=== PATIENT | female | born 1960 | race African-American/Black ===

== ENCOUNTER 2020-12-05 10:50 | Outpatient (REF) | payer OTHER, SELFPAY ==
[2020-12-05 14:04] LABS: Hematocrit 42.5 % (37-47); Hemoglobin 13.5 g/dl (12.0-16.0); Mean Corpuscular HGB Conc 31.8 g/dl (31.0-35.0); Mean Corpuscular Hemoglobin 29.1 pg (27.0-33.0); Mean Corpuscular Volume 91.6 fL (80-98); Mean Platelet Volume 10.6 fL (9.4-12.3); Platelet Count 356 X10*3/uL (160-400); Red Blood Count 4.64 X10*6/uL (4.20-5.50); Red Cell Distribution Width 12.4 % (11.0-16.0); White Blood Count 4.9 X10*3/uL (4.8-10.8)
[2020-12-05 14:36] LABS: Alanine Aminotransferase 18 U/L (0-31); Albumin Level 4.8 g/dL (3.5-5.0); Alkaline Phosphatase 110 U/L (39-117); Anion Gap 11 (12-20); Aspartate Amino Transferase 15 U/L (5-31); Bilirubin Total 0.6 mg/dL (0.0-1.0); Blood Urea Nitrogen 17 mg/dL (9-16); Calcium 9.6 mg/dL (8.4-10.2); Carbon Dioxide 26 mmol/L (22-29); Chloride 105 mmol/L (96-108); Cholesterol 228 mg/dL; Estimated Glomerular Filt Rate > 60; Glucose Fasting 87 mg/dL (60-99); HDL Cholesterol 54 mg/dL; LDL Cholesterol Calculated 155 mg/dl; Potassium 4.2 mmol/L (3.3-5.1); Sodium 138 mmol/L (135-145); Total Protein 7.6 g/dL (6.5-8.0); Triglycerides 99 mg/dL
== END 2020-12-05 10:51 | disposition home or self-care (01) ==
LOC: HO.HMGCLDS 10:50
PROVIDERS: PCP Internal Medicine; Visit Provider Internal Medicine
DX: Z00.00 Encounter for general adult medical examination without abnormal findings (principal)
CPT/HCPCS: 36415; 80053; 80061; 85027

== ENCOUNTER 2021-12-06 10:51 | Outpatient (REF) | payer OTHER, SELFPAY ==
[2021-12-06 14:06] LABS: Hematocrit 43.1 % (37.0-47.0); Mean Corpuscular HGB Conc 32.5 g/dl (31.0-35.0); Mean Corpuscular Hemoglobin 29.7 pg (27.0-33.0); Mean Corpuscular Volume 91.3 fL (80.0-98.0); Mean Platelet Volume 10.7 fL (9.4-12.3); Platelet Count 362 X10*3/uL (160-400); Red Blood Count 4.72 X10*6/uL (4.20-5.50); Red Cell Distribution Width 12.5 % (11.0-16.0); White Blood Count 4.7 X10*3/uL (4.8-10.8)
[2021-12-06 14:20] LABS: Alanine Aminotransferase 21 U/L (0-31); Albumin Level 4.6 g/dL (3.5-5.0); Alkaline Phosphatase 111 U/L (39-117); Anion Gap 10 (12-20); Aspartate Amino Transferase 16 U/L (5-31); Bilirubin Total 0.6 mg/dL (0.0-1.0); Blood Urea Nitrogen 10 mg/dL (9-16); Carbon Dioxide 30 mmol/L (22-29); Chloride 106 mmol/L (96-108); Cholesterol 237 mg/dL; Estimated Glomerular Filt Rate > 60; Glucose Fasting 93 mg/dL (60-99); HDL Cholesterol 53 mg/dL; LDL Cholesterol Calculated 170 mg/dl; Potassium 4.7 mmol/L (3.3-5.1); Sodium 141 mmol/L (135-145); Total Protein 7.6 g/dL (6.5-8.0); Triglycerides 73 mg/dL
[2021-12-06 14:41] LABS: TSH reflex Free T4 1.92 uIU/mL (0.32-4.0)
== END 2021-12-06 10:52 | disposition home or self-care (01) ==
LOC: HO.HMGCLDS 10:51
PROVIDERS: Visit Provider Internal Medicine
DX: Z00.00 Encounter for general adult medical examination without abnormal findings (principal); E78.5 Hyperlipidemia, unspecified
CPT/HCPCS: 36415; 80053; 80061; 84443; 85027; 87086

== ENCOUNTER 2022-07-03 08:47 | Outpatient (REF) | payer OTHER, SELFPAY ==
[2022-07-03 11:56] LABS: Cholesterol 231 mg/dL; HDL Cholesterol 54 mg/dL; LDL Cholesterol Calculated 165 mg/dl; Triglycerides 63 mg/dL
== END 2022-07-03 08:48 | disposition home or self-care (01) ==
LOC: HO.HMGCLDS 08:47
PROVIDERS: PCP Internal Medicine; Visit Provider Internal Medicine
DX: E78.5 Hyperlipidemia, unspecified (principal)
CPT/HCPCS: 36415; 80061

== ENCOUNTER → 2022-10-24 08:51 | Outpatient (BNVA) | payer OTHER, SELFPAY | PROVIDERS: PCP Internal Medicine; Visit Provider Dietitian, Registered | DX: E78.5 Hyperlipidemia, unspecified (principal); Z71.3 Dietary counseling and surveillance | CPT/HCPCS: 97802 ==

== ENCOUNTER 2023-04-22 11:02 | Outpatient (AMB) | payer OTHER, SELFPAY ==
[2023-04-22 11:17] VITALS: BP 108/66; PULSE 79; O2SAT 96; BMI 27.6
--- NOTE | 2023-04-22 11:17 | A.OFFPC_ITS ---
Vital Signs 04/22/23 11:17 Height 5 ft 7 in Weight 176 lb BMI 27.6 BP 108/66 Blood Pressure Location Lt brachial Position Sitting Pulse 79 Pulse Source Pulse Oximeter Pulse Oximetry (%) 96 Oxygen Delivery Method Room Air Intake Visit Reasons: ears clogged Intake Note: Pt is here today for a sick visit. Pt c/o clogged ears since she travel at the end of January. Allergies Seasonal Allergies Allergy (Mild, Verified 04/22/23 11:28) Itchy Eyes tetracycline Allergy (Unknown, Unverified 04/22/23 11:28) nausea and lightheaded Medication List - Last Reconciled 04/22/23 by Consuelo Julio MD No Known Home Meds Tobacco use date assessed: 04/22/23 Dental Screening Dental Screen Date: 04/22/23 Did you have a dental visit in the last 12 months?: Yes Did you have a dental problem in the last 6 months where you did not have access to dental care?: No Was dental information given to patient?: Patient has dentist HPI ears clogged HPI Details Pt c/o right ear feeling blocked on and off for 1 month. She denies earache or discharge fever chills. [facility] Medical History Hyperlipidemia Colonoscopy refused Annual physical exam Liver masses Normal Pap smear Multinodular thyroid Cholelithiasis Surgical History No pertinent past surgical history Family History Father No problems noted. Mother No problems noted. Social History Household Members Other:: works from home, exercise, Housing: House Patient Tobacco Use Status: Never used Tobacco e-Cigarette/Vaping Use: Never Used Current occupational status: employed Cognitive needs: No Hearing needs: No Vision needs: Yes Questionnaire PHQ-9 Over the last 2 weeks, how often have you been bothered by any of the following problems? 1. Little interest or pleasure in doing things: not at all 2. Feeling down, depressed, or hopeless: not at all 3. Trouble falling or staying asleep, or sleeping too much: not at all 4. Feeling tired or having little energy: not at all 5. Poor appetite or overeating: not at all 6. Feeling bad about yourself - or that you are a failure or have let yourself or your family down: not at all 7. Trouble concentrating on things, such as reading the newspaper or watching television: not at all 8. Moving or speaking so slowly that other people could have noticed. Or the opposite - being so fidgety or restless that you have been moving around a lot more than usual: not at all 9. Thoughts that you would be better off or of hurting yourself in some way: not at all Total score: 0 Depression Screening Interpretation: Negative Depression Screening Done: Yes Source: Developed by Drs. Ashish De Dios, Juanis Saleh, Fernando Curiel and colleagues, with an educational karrie from [facility]. Thrive Questionnaire Date Thrive assessed: 04/22/23 I am a: Patient What is your living situation today?: I have a steady place to live Within the past 12 months, did the food you bought not last and you didn't have the money to get more?: Never true Within the past 12 months, did you worry whether your food would run out before you got money to buy more?: Never true Do you have trouble paying for medicines?: No Do you have trouble getting transportation to medical appointments?: No Do you have trouble paying your heating and electricity bill?: No Do you have trouble taking care of your child, family member or friend?: No Do you have trouble with day-to-day activities such as bathing, preparing meals, shopping, managing finances, etc.?: No Are you currently unemployed and looking for a job?: No Are you interested in more education?: No Please select the resources that you would like help with: None Currently or been in a relationship where the following occur: no concerns reported AUDIT C Alcohol Use Questionnaire (AUDIT-C) 1. How often do you have a drink containing alcohol?: Monthly or less 2. How many drinks containing alcohol do you have on a typical day when you are drinking?: 1 or 2 3. How often do you have six or more drinks on one occasion?: Never Total Score: 1 VIANCA-7 AMB Questionnaire VIANCA-7 Date VIANCA - 7 assessed: 04/22/23 Feeling nervous, anxious, or on edge: 0 = Not at all Not being able to stop or control worryin = Not at all Worrying too much about different things: 0 = Not at all Trouble relaxin = Not at all Being so restless that it is hard to sit still: 0 = Not at all Becoming easily annoyed or irritable: 0 = Not at all Feeling afraid as if something awful might happen: 0 = Not at all Total VIANCA-7 score (0-4 normal; 5-9 mild; 10-14 moderate; 15-21 severe): 0 Source: Developed by Drs. Ashish De Dios, Juanis Saleh, Fernando Curiel and colleagues, with an educational karrie from [facility]. Review of Systems Const All systems reviewed & are unremarkable except as noted in HPI and below Reports no additional complaints ENT Reports no additional complaints Card Reports no additional complaints Resp Reports no additional complaints GI Reports no additional complaints Physical exam (Primary Care) Vital Signs: Last Vital Signs Pulse 79 04/22/23 11:17 BP 108/66 04/22/23 11:17 Pulse Ox 96 04/22/23 11:17 Oxygen Delivery Method Room Air 04/22/23 11:17 BMI result Body Mass Index 27.6 Tobacco/Smoking Status: Tobacco use Status Tobacco use date assessed 04/22/23 04/22/23 11:29 Patient Tobacco Use Status Never used Tobacco 04/22/23 11:29 e-Cigarette/Vaping Use Never Used 04/22/23 11:18 PHQ-9: PHQ-9 Score PHQ-9: Total score 0 04/22/23 11:31 Depression Screening Interpretation: Negative Thrive Assessment: Date of Thrive Assessment Date Thrive assessed 04/22/23 04/22/23 11:31 Currently or been in a relationship where the following occur: no concerns reported Const General: no acute distress HENMT Ears: external ear abnormal (Right ear cerumen impaction) General nose exam: Normal nasal mucous membranes and turbinates present Face and sinus: Yes normal facial exam Mouth: Normal oral and palatal mucosa present Throat: Yes posterior oropharynx normal Neck Neck: Yes no lymphadenopathy and Yes supple Resp Auscultation: clear to auscultation bilaterally Cardio Rhythm: regular rhythm Heart sounds: S1 normal heart sound present and S2 normal heart sound present Assessment and Plan Assessment & Plan (1) Impacted cerumen, right ear: Code(s): H61.21 - Impacted cerumen, right ear Plan: Ear lavage was performed. patient tolerated procedure well . she was advised to use Debrox weekly to prevent buildup of cerumen Orders: Orders Complete Blood Count Auto Diff 2 Months E78.5 - Hyperlipidemia, unspecified, R16.0 - Hepatomegaly, not elsewhere classified, Z00.00 - Encounter for general adult medical examination without abnormal findings Lipid Panel 2 Months E78.5 - Hyperlipidemia, unspecified, R16.0 - Hepatomegaly, not elsewhere classified, Z00.00 - Encounter for general adult medical examination without abnormal findings TSH reflex Free T4 2 Months E78.5 - Hyperlipidemia, unspecified, R16.0 - Hepatomegaly, not elsewhere classified, Z00.00 - Encounter for general adult medical examination without abnormal findings Vitamin D 25-OH Total 2 Months E78.5 - Hyperlipidemia, unspecified, R16.0 - Hepatomegaly, not elsewhere classified, Z00.00 - Encounter for general adult medical examination without abnormal findings Comprehensive [place]. Panel Fast 2 Months E78.5 - Hyperlipidemia, unspecified, R16.0 - Hepatomegaly, not elsewhere classified, Z00.00 - Encounter for general adult medical examination without abnormal findings Coding Level of Care Code Est Pt Level 3 (04293) Diagnoses Impacted cerumen, right ear H61.21
== END 2023-04-22 12:09 | disposition home or self-care (01) ==
PROVIDERS: PCP Internal Medicine; Visit Provider Internal Medicine
DX: H61.21 Impacted cerumen, right ear (principal)
CPT/HCPCS: 99213

== ENCOUNTER 2023-07-22 08:31 | Outpatient (AMB) | payer OTHER, SELFPAY ==
[2023-07-22 08:34] VITALS: BP 114/80; PULSE 66; O2SAT 98; BMI 27.9
--- NOTE | 2023-07-22 08:34 | A.OFFPC_ITS ---
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 Allergies Seasonal Allergies Allergy (Mild, Verified 07/22/23 08:37) Itchy Eyes tetracycline Allergy (Unknown, Unverified 07/22/23 08:37) nausea and lightheaded Medication List - Last Reconciled 07/22/23 by Consuelo Julio MD No Known Home Meds Tobacco use date assessed: 07/22/23 Dental Screening Dental Screen Date: 07/22/23 Did you have a dental visit in the last 12 months?: Yes Did you have a dental problem in the last 6 months where you did not have access to dental care?: No Was dental information given to patient?: Patient has dentist HPI phy HPI Details Pt presents for PE. [facility] Medical History (Updated 07/22/23 @ 09:17 by Consuelo Julio MD) Hyperlipidemia Colonoscopy refused Annual physical exam Liver masses Normal Pap smear Multinodular thyroid Cholelithiasis Surgical History No pertinent past surgical history Family History Father No problems noted. Mother No problems noted. Social History Household Members Other:: works from home, exercise, Housing: House Patient Tobacco Use Status: Never used Tobacco e-Cigarette/Vaping Use: Never Used Current occupational status: employed Cognitive needs: No Hearing needs: No Vision needs: Yes Questionnaire PHQ-9 Over the last 2 weeks, how often have you been bothered by any of the following problems? 1. Little interest or pleasure in doing things: not at all 2. Feeling down, depressed, or hopeless: not at all 3. Trouble falling or staying asleep, or sleeping too much: not at all 4. Feeling tired or having little energy: several days 5. Poor appetite or overeating: not at all 6. Feeling bad about yourself - or that you are a failure or have let yourself or your family down: not at all 7. Trouble concentrating on things, such as reading the newspaper or watching television: not at all 8. Moving or speaking so slowly that other people could have noticed. Or the opposite - being so fidgety or restless that you have been moving around a lot more than usual: not at all 9. Thoughts that you would be better off or of hurting yourself in some way: not at all Total score: 1 Depression Screening Interpretation: Negative Depression Screening Done: Yes Source: Developed by Drs. Ashish De Dios, Juanis Saleh, Fernando Curiel and colleagues, with an educational karrie from [employer]. Thrive Questionnaire Date Thrive assessed: 07/22/23 I am a: Patient What is your living situation today?: I have a steady place to live Within the past 12 months, did the food you bought not last and you didn't have the money to get more?: Never true Within the past 12 months, did you worry whether your food would run out before you got money to buy more?: Never true Do you have trouble paying for medicines?: No Do you have trouble getting transportation to medical appointments?: No Do you have trouble paying your heating and electricity bill?: No Do you have trouble taking care of your child, family member or friend?: No Do you have trouble with day-to-day activities such as bathing, preparing meals, shopping, managing finances, etc.?: No Are you currently unemployed and looking for a job?: No Are you interested in more education?: No Please select the resources that you would like help with: None Currently or been in a relationship where the following occur: no concerns reported AUDIT C Alcohol Use Questionnaire (AUDIT-C) 1. How often do you have a drink containing alcohol?: Monthly or less 2. How many drinks containing alcohol do you have on a typical day when you are drinking?: 1 or 2 3. How often do you have six or more drinks on one occasion?: Never Total Score: 1 VIANCA-7 AMB Questionnaire VIANCA-7 Date VIANCA - 7 assessed: 07/22/23 Feeling nervous, anxious, or on edge: 0 = Not at all Not being able to stop or control worryin = Not at all Worrying too much about different things: 0 = Not at all Trouble relaxin = Not at all Being so restless that it is hard to sit still: 0 = Not at all Becoming easily annoyed or irritable: 0 = Not at all Feeling afraid as if something awful might happen: 0 = Not at all Total VIANCA-7 score (0-4 normal; 5-9 mild; 10-14 moderate; 15-21 severe): 0 Source: Developed by Drs. Ashish De Dios, Juanis Saleh, Fernando Curiel and colleagues, with an educational karrie from [employer]. Review of Systems Const All systems reviewed & are unremarkable except as noted in HPI and below Reports no additional complaints Eyes Reports no additional complaints ENT Reports no additional complaints Card Reports no additional complaints Resp Reports no additional complaints GI Reports no additional complaints Reports no additional complaints Musc Reports no additional complaints Physical exam (Primary Care) Vital Signs: Last Vital Signs Pulse 66 07/22/23 08:34 BP 114/86 07/22/23 08:34 Pulse Ox 98 07/22/23 08:34 Oxygen Delivery Method Room Air 07/22/23 08:34 BMI result Body Mass Index 27.9 Tobacco/Smoking Status: Tobacco use Status Tobacco use date assessed 07/22/23 07/22/23 08:40 Patient Tobacco Use Status Never used Tobacco 07/22/23 08:40 e-Cigarette/Vaping Use Never Used 07/22/23 08:40 Depression Screening Interpretation: Negative Thrive Assessment: Date of Thrive Assessment Date Thrive assessed 04/22/23 07/22/23 08:40 Currently or been in a relationship where the following occur: no concerns reported Const General: no acute distress HENMT Head: Yes normal to inspection Ears: hearing grossly normal bilaterally Face and sinus: Yes normal facial exam Mouth: Normal oral and palatal mucosa present Eyes General: appearance normal, both eyes and all related structures Neck Neck: Yes no lymphadenopathy and Yes supple Resp Effort & Inspection: normal respiratory effort Auscultation: clear to auscultation bilaterally Cardio Rhythm: regular rhythm Heart sounds: S1 normal heart sound present and S2 normal heart sound present GI Inspection: Yes normal to inspection Palpation (GI): Soft to palpation Percussion: Yes normal to percussion Auscultation: normal bowel sounds Assessment and Plan Assessment & Plan (1) Hyperlipidemia: Code(s): E78.5 - Hyperlipidemia, unspecified Plan: CONTINUE LOW-CHOLESTEROL DIET REGULAR PHYSICAL ACTIVITY, patient have a fasting labs today if cholesterol still elevated pravastatin 20 mg daily will be started and patient will repeat lipid profile in 2 and 6 months. (2) Annual physical exam: Code(s): Z00.00 - Encounter for general adult medical examination without abnormal findings Plan: Well-balanced diet regular physical activity discussed with the patient. She is up-to-date with the mammogram through [facility], Pap smear by office analyst and patient refused colonoscopy Cologuard will be ordered. (3) Colonoscopy refused: Comment: 11/2020 Cologuard NEGATIVE, 08/12 Cologuard ordered Code(s): Z53.20 - Procedure and treatment not carried out because of patient's decision for unspecified reasons (4) Liver masses: Comment: ? [facility], MRI 09/2018 , recommended repeat with Eovist contrast to be done in 6 months Code(s): R16.0 - Hepatomegaly, not elsewhere classified Plan: check report on repeat MRI. Orders: Orders Lipid Panel Today E78.5 - Hyperlipidemia, unspecified, Z00.00 - Encounter for general adult medical examination without abnormal findings TSH reflex Free T4 Today E78.5 - Hyperlipidemia, unspecified, Z00.00 - Encounter for general adult medical examination without abnormal findings Lipid Panel 2 Months E78.5 - Hyperlipidemia, unspecified Comprehensive [place]. Panel Fast Today E78.5 - Hyperlipidemia, unspecified, Z00.00 - Encounter for general adult medical examination without abnormal findings Complete Blood Count Auto Diff Today E78.5 - Hyperlipidemia, unspecified, Z00.00 - Encounter for general adult medical examination without abnormal findings Referrals Cologuard Test Z12.11 - Encounter for screening for malignant neoplasm of colon, Z12.12 - Encounter for screening for malignant neoplasm of rectum Coding Level of Care Code Est Pt Prev Care 40-64y(58144) Diagnoses Hyperlipidemia E78.5 Annual physical exam Z00.00 Colonoscopy refused Z53.20 Liver masses R16.0
== END 2023-07-22 09:18 | disposition home or self-care (01) ==
PROVIDERS: PCP Internal Medicine; Visit Provider Internal Medicine
DX: E78.5 Hyperlipidemia, unspecified (principal); Z00.00 Encounter for general adult medical examination without abnormal findings; Z53.20 Procedure and treatment not carried out because of patient's decision for unspecified reasons; R16.0 Hepatomegaly, not elsewhere classified
CPT/HCPCS: 99396

== ENCOUNTER 2023-07-22 09:02 | Outpatient (REF) | payer OTHER, SELFPAY | END 2023-07-22 09:03 | disposition home or self-care (01) | LOC: HO.HMGCLDS 09:02 | PROVIDERS: PCP Internal Medicine; Visit Provider Internal Medicine | DX: Z00.00 Encounter for general adult medical examination without abnormal findings (principal); E78.5 Hyperlipidemia, unspecified | CPT/HCPCS: 36415; 80053; 80061; 84439; 84443; 85025 ==

== ENCOUNTER 2023-12-01 09:13 | Outpatient (AMB) | payer OTHER, SELFPAY ==
[2023-12-01 09:18] VITALS: BP 102/64; PULSE 66; O2SAT 96; BMI 27.4
--- NOTE | 2023-12-01 09:18 | A.OFFPC_ITS ---
Vital Signs 12/01/23 09:18 Height 5 ft 7 in Weight 175 lb BMI 27.4 BP 102/64 Blood Pressure Location Rt brachial Position Sitting Pulse 66 Pulse Source Pulse Oximeter Pulse Oximetry (%) 96 Oxygen Delivery Method Room Air Intake Visit Reasons: Dermatology referral Intake Note: Pt is here today for a sick visit. 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 Allergies Seasonal Allergies Allergy (Mild, Verified 12/01/23 09:21) Itchy Eyes tetracycline Allergy (Unknown, Unverified 12/01/23 09:21) nausea and lightheaded Medication List - Last Reconciled 12/01/23 by Consuelo Julio MD Tobacco use date assessed: 12/01/23 Dental Screening Dental Screen Date: 07/22/23 HPI Dermatology referral HPI Details Patient presents for the follow-up. She did not start taking a statin for hyperlipidemia. Patient has been follow low-cholesterol diet started exercising 5 times a week. 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 Mother No problems noted. Social History Household Members Other:: works from home, exercise, Housing: House Patient Tobacco Use Status: Never used Tobacco e-Cigarette/Vaping Use: Never Used service: No Current occupational status: employed Cognitive needs: No Hearing needs: No Vision needs: Yes Questionnaire Thrive Questionnaire Date Thrive assessed: 07/22/23 VIANCA-7 AMB Questionnaire VIANCA-7 Date VIANCA - 7 assessed: 07/22/23 Source: Developed by Drs. Ashish De Dios, Juanis Saleh, Fernando Curiel and colleagues, with an educational karrie from [employer] Review of Systems Const All systems reviewed & are unremarkable except as noted in HPI and below Eyes Reports no additional complaints ENT Reports no additional complaints Card Reports no additional complaints Resp Reports no additional complaints GI Reports no additional complaints Reports no additional complaints Physical exam (Primary Care) Vital Signs: Last Vital Signs Pulse 66 12/01/23 09:18 BP 102/64 12/01/23 09:18 Pulse Ox 96 12/01/23 09:18 Oxygen Delivery Method Room Air 12/01/23 09:18 BMI result Body Mass Index 27.4 Tobacco/Smoking Status: Tobacco use Status Tobacco use date assessed 12/01/23 12/01/23 09:22 Patient Tobacco Use Status Never used Tobacco 12/01/23 09:22 e-Cigarette/Vaping Use Never Used 12/01/23 09:22 Thrive Assessment: Date of Thrive Assessment Date Thrive assessed 07/22/23 12/01/23 09:22 Const General: no acute distress HENMT Face and sinus: Yes normal facial exam Neck Neck: Yes supple Resp Effort & Inspection: normal respiratory effort Auscultation: clear to auscultation bilaterally Cardio Rhythm: regular rhythm Heart sounds: S1 normal heart sound present and S2 normal heart sound present GI Palpation (GI): Soft to palpation Skin Other: Multiple lesions of seborrheic keratosis and dysplastic nevi on the back Assessment and Plan Assessment & Plan (1) Hyperglycemia: Code(s): R73.9 - Hyperglycemia, unspecified Plan: ADA diet increase exercise discussed with the patient she will return for a follow-up in 2 months with a fasting labs including A1c (2) Hyperlipidemia: Code(s): E78.5 - Hyperlipidemia, unspecified Plan: Continue low-cholesterol diet regular exercise (3) Dysplastic nevi: Code(s): D23.9 - Other benign neoplasm of skin, unspecified Plan: Referred to dermatology (4) Liver neoplasm: Comment: on MRI 2018, recommended repeat by radiology Code(s): D49.0 - Neoplasm of unspecified behavior of digestive system Plan: Liver MRI will be reordered and follow-up Orders: Orders Hemoglobin A1c 2 Months E78.5 - Hyperlipidemia, unspecified, R73.9 - Hyperglycemia, unspecified MR abdomen wo/w con Today D49.0 - Neoplasm of unspecified behavior of digestive system Comprehensive Met. Panel 2 Months E78.5 - Hyperlipidemia, unspecified, R73.9 - Hyperglycemia, unspecified Lipid Panel 2 Months E78.5 - Hyperlipidemia, unspecified, R73.9 - Hyperglycemia, unspecified TSH reflex Free T4 2 Months E78.5 - Hyperlipidemia, unspecified, R73.9 - Hyperglycemia, unspecified Referrals Dermatology Referral D23.9 - Other benign neoplasm of skin, unspecified Coding Level of Care Code Est Pt Level 4 (11506) Diagnoses Hyperglycemia R73.9 Hyperlipidemia E78.5 Dysplastic nevi D23.9 Liver neoplasm D49.0
== END 2023-12-01 09:59 | disposition home or self-care (01) ==
PROVIDERS: PCP Internal Medicine; Visit Provider Internal Medicine
DX: R73.9 Hyperglycemia, unspecified (principal); E78.5 Hyperlipidemia, unspecified; D23.9 Other benign neoplasm of skin, unspecified; D49.0 Neoplasm of unspecified behavior of digestive system
CPT/HCPCS: 99214

== ENCOUNTER 2024-02-12 09:07 | Outpatient (REF) | payer OTHER, SELFPAY ==
[2024-02-12 13:22] LABS: Estimated Average Glucose 100 mg/dL; Hemoglobin A1C 111.7679 umol/L; Hemoglobin A1c % 5.1 % (<6.0)
[2024-02-12 13:32] LABS: Alanine Aminotransferase 20 U/L (0-31); Albumin Level 4.5 g/dL (3.5-5.0); Alkaline Phosphatase 105 U/L (39-117); Anion Gap 13 (12-20); Aspartate Amino Transferase 16 U/L (5-31); Bilirubin Total 0.6 mg/dL (0.0-1.0); Blood Urea Nitrogen 11 mg/dL (9-16); Calcium 10.1 mg/dL (8.4-10.2); Carbon Dioxide 27 mmol/L (22-29); Chloride 107 mmol/L (96-108); Cholesterol 234 mg/dL (<200); Estimated Glomerular Filt Rate > 60; Glucose Random 98 mg/dL (60-115); HDL Cholesterol 48 mg/dL (>40); LDL Cholesterol Calculated 155 mg/dL (<100); Potassium 4.3 mmol/L (3.3-5.1); Sodium 143 mmol/L (135-145); Total Protein 7.5 g/dL (6.5-8.0); Triglycerides 156 mg/dL (<150)
[2024-02-12 13:53] LABS: TSH reflex Free T4 1.89 uIU/mL (0.32-4.0)
== END 2024-02-12 09:08 | disposition home or self-care (01) ==
LOC: HO.HMGCLDS 09:07
PROVIDERS: PCP Internal Medicine; Visit Provider Internal Medicine
DX: R73.9 Hyperglycemia, unspecified (principal); E78.5 Hyperlipidemia, unspecified
CPT/HCPCS: 36415; 80053; 80061; 83036; 84443

== ENCOUNTER 2024-02-16 10:16 | Outpatient (AMB) | payer OTHER, SELFPAY ==
[2024-02-16 10:28] VITALS: BP 118/78; PULSE 76; O2SAT 96; BMI 27.4
--- NOTE | 2024-02-16 10:28 | A.OFFPC_ITS ---
Vital Signs 02/16/24 10:28 Height 5 ft 7 in Weight 175 lb BMI 27.4 BP 118/78 Blood Pressure Location Rt brachial Position Sitting Pulse 76 Pulse Source Pulse Oximeter Pulse Oximetry (%) 96 Oxygen Delivery Method Room Air Intake Visit Reasons: 6M F/U reschd from 01/25/24 Intake Note: Pt is here today for 6 months follow up visit on labs. Allergies Seasonal Allergies Allergy (Mild, Verified 02/16/24 10:37) Itchy Eyes tetracycline Allergy (Unknown, Unverified 02/16/24 10:37) nausea and lightheaded Medication List - Last Reconciled 02/16/24 by Consuelo Julio MD pravastatin 10 mg PO DAILY Tobacco use date assessed: 02/16/24 Dental Screening Dental Screen Date: 02/16/24 Did you have a dental visit in the last 12 months?: Yes Did you have a dental problem in the last 6 months where you did not have access to dental care?: No Was dental information given to patient?: Patient has dentist HPI 6M F/U reschd from 01/25/24 HPI Details Patient presents for the follow-up on hyperlipidemia. She has been following low-cholesterol diet but has not been exercising regularly. [facility] Medical History (Updated 02/16/24 @ 14:18 by Consuelo Julio MD) Hyperlipidemia Colonoscopy refused Annual physical exam Liver masses Normal Pap smear Multinodular thyroid Cholelithiasis Surgical History No pertinent past surgical history Family History Father No problems noted. Mother No problems noted. Social History Household Members Other:: works from home, exercise, Housing: House Patient Tobacco Use Status: Never used Tobacco e-Cigarette/Vaping Use: Never Used service: No Current occupational status: employed Cognitive needs: No Hearing needs: No Vision needs: Yes Questionnaire PHQ-9 Over the last 2 weeks, how often have you been bothered by any of the following problems? 1. Little interest or pleasure in doing things: not at all 2. Feeling down, depressed, or hopeless: not at all 3. Trouble falling or staying asleep, or sleeping too much: not at all 4. Feeling tired or having little energy: not at all 5. Poor appetite or overeating: not at all 6. Feeling bad about yourself - or that you are a failure or have let yourself or your family down: not at all 7. Trouble concentrating on things, such as reading the newspaper or watching television: not at all 8. Moving or speaking so slowly that other people could have noticed. Or the opposite - being so fidgety or restless that you have been moving around a lot more than usual: not at all 9. Thoughts that you would be better off or of hurting yourself in some way: not at all Total score: 0 Depression Screening Interpretation: Negative Depression Screening Done: Yes Source: Developed by Drs. Ashish De Dios, Juanis Saleh, Fernando Curiel and colleagues, with an educational karrie from [employer]. Thrive Questionnaire Date Thrive assessed: 02/16/24 I am a: Patient What is your living situation today?: I have a steady place to live Within the past 12 months, did the food you bought not last and you didn't have the money to get more?: Never true Within the past 12 months, did you worry whether your food would run out before you got money to buy more?: Never true Do you have trouble paying for medicines?: No Do you have trouble getting transportation to medical appointments?: No Do you have trouble paying your heating and electricity bill?: No Do you have trouble taking care of your child, family member or friend?: No Do you have trouble with day-to-day activities such as bathing, preparing meals, shopping, managing finances, etc.?: No Are you currently unemployed and looking for a job?: No Are you interested in more education?: No Please select the resources that you would like help with: Housing/Skilled Nursing Currently or been in a relationship where the following occur: No concerns reported THRIVE Score: 0 AUDIT C Alcohol Use Questionnaire (AUDIT-C) 1. How often do you have a drink containing alcohol?: 2-4 times a month 2. How many drinks containing alcohol do you have on a typical day when you are drinking?: 1 or 2 3. How often do you have six or more drinks on one occasion?: Never Total Score: 2 VINACA-7 AMB Questionnaire VIANCA-7 Date VIANCA - 7 assessed: 02/16/24 Feeling nervous, anxious, or on edge: 0 = Not at all Not being able to stop or control worryin = Not at all Worrying too much about different things: 0 = Not at all Trouble relaxin = Not at all Being so restless that it is hard to sit still: 0 = Not at all Becoming easily annoyed or irritable: 0 = Not at all Feeling afraid as if something awful might happen: 0 = Not at all Total VIANCA-7 score (0-4 normal; 5-9 mild; 10-14 moderate; 15-21 severe): 0 Source: Developed by Drs. Ashish De Dios, Juanis Saleh, Fernando Curiel and colleagues, with an educational karrie from [employer]. Review of Systems Const All systems reviewed & are unremarkable except as noted in HPI and below Eyes Reports no additional complaints ENT Reports no additional complaints Card Reports no additional complaints Resp Reports no additional complaints GI Reports no additional complaints Reports no additional complaints Physical exam (Primary Care) Vital Signs: Last Vital Signs Pulse 76 02/16/24 10:28 BP 118/78 02/16/24 10:28 Pulse Ox 96 02/16/24 10:28 Oxygen Delivery Method Room Air 02/16/24 10:28 BMI result Body Mass Index 27.4 Tobacco/Smoking Status: Tobacco use Status Tobacco use date assessed 02/16/24 02/16/24 10:40 Patient Tobacco Use Status Never used Tobacco 02/16/24 10:40 e-Cigarette/Vaping Use Never Used 02/16/24 10:28 PHQ-9: PHQ-9 Score PHQ-9: Total score 0 02/16/24 11:09 Depression Screening Interpretation: Negative Thrive Assessment: Date of Thrive Assessment Date Thrive assessed 02/16/24 02/16/24 10:40 Currently or been in a relationship where the following occur: No concerns reported Const General: no acute distress HENMT Head: Yes normal to inspection Face and sinus: Yes normal facial exam Neck Neck: Yes supple Resp Effort & Inspection: normal respiratory effort Auscultation: clear to auscultation bilaterally Cardio Rhythm: regular rhythm Heart sounds: S1 normal heart sound present and S2 normal heart sound present GI Inspection: Yes normal to inspection Palpation (GI): Soft to palpation Percussion: Yes normal to percussion Auscultation: normal bowel sounds Assessment and Plan Assessment & Plan (1) Hyperlipidemia: Code(s): E78.5 - Hyperlipidemia, unspecified Plan: Continue low-cholesterol diet increase physical activity and fish oil supplement discussed with the patient pravastatin 10 mg daily will be started. Lipid profile will be checked in 2 months and if the patient tolerates medication well she will continue until physical in 6 months. (2) Liver masses: Comment: Multiple small hepatic cysts, 2 benign hemangiomas gallstones? [facility], MRI 09/2018 , Code(s): R16.0 - Hepatomegaly, not elsewhere classified Plan: Obtain follow-up liver ultrasound (3) Hyperglycemia: Code(s): R73.9 - Hyperglycemia, unspecified Plan: Continue ADA diet check A1c is 6 months Orders: Orders US abdomen complete Today R16.0 - Hepatomegaly, not elsewhere classified Lipid Panel 6 Months E78.5 - Hyperlipidemia, unspecified, R73.9 - Hyperglycemia, unspecified Complete Blood Count Auto Diff 6 Months E78.5 - Hyperlipidemia, unspecified, R73.9 - Hyperglycemia, unspecified Lipid Panel 2 Months E78.5 - Hyperlipidemia, unspecified Comprehensive Met. Panel 2 Months E78.5 - Hyperlipidemia, unspecified Comprehensive [place]. Panel Fast 6 Months E78.5 - Hyperlipidemia, unspecified, R73.9 - Hyperglycemia, unspecified Hemoglobin A1c 6 Months E78.5 - Hyperlipidemia, unspecified, R73.9 - Hyperglyce isadora, unspecified UA w Microscopic 6 Months E78.5 - Hyperlipidemia, unspecified, R73.9 - Hyperglycemia, unspecified Medications: New pravastatin 10 mg PO DAILY 90 tabs 1RF Coding Level of Care Code Est Pt Level 3 (67805) Diagnoses Hyperlipidemia E78.5 Liver masses R16.0 Hyperglycemia R73.9
== END 2024-02-16 11:50 | disposition home or self-care (01) ==
PROVIDERS: PCP Internal Medicine; Visit Provider Internal Medicine
DX: E78.5 Hyperlipidemia, unspecified (principal); R16.0 Hepatomegaly, not elsewhere classified; R73.9 Hyperglycemia, unspecified
CPT/HCPCS: 99213

== ENCOUNTER 2024-03-22 09:46 | Outpatient (REF) | payer OTHER, SELFPAY ==
--- NOTE | ~2024-03-22 | US_ITS ---
EXAMINATION: US ABDOMEN COMPLETE CLINICAL INFORMATION: Hepatomegaly, not elsewhere classified. Follow up liver cysts. COMPARISON: MRI abdomen 09/29/2018. CT abdomen and pelvis 09/13/2018. TECHNIQUE: Real-time imaging of the abdominal viscera. FINDINGS: PANCREAS: The pancreas appears unremarkable, without masses or ductal dilatation, with the exception of the tail which is obscured by bowel gas. ABDOMINAL AORTA: The proximal, mid, and distal segments are normal in caliber. INFERIOR VENA CAVA: Visualized portions are normal. LIVER: The liver is normal in size. The liver contour is normal. There is slightly increased heterogeneous liver parenchymal echogenicity suggesting hepatic steatosis. There is no intrahepatic biliary duct dilatation seen. Two masses are again seen in the liver both of which are echogenic. The larger mass measures 2.1 x 2.1 x 1.6 cm and the smaller mass measures 0.9 x 1.1 x 0.7 cm. Exact comparisons to the prior CT scan and MRI are difficult because of differences in modality, but maximal dimension of the larger mass on the CT scan was about 2.2 cm and the smaller mass about 1.5 cm. There is probably no significant interval increase in size. Would recommend a followup study using ultrasound as these are exceptionally well seen. GALLBLADDER: The gallbladder is physiologically distended. Multiple mobile large gallstones are present. No evidence of gallbladder wall thickening or pericholecystic fluid. COMMON BILE DUCT: Normal in caliber measuring 0.59 cm in diameter. RIGHT KIDNEY: Normal. No hydronephrosis. No renal calculi or focal parenchymal lesions. The kidney measures 8.0 cm in maximum dimension. LEFT KIDNEY: Normal. No hydronephrosis. No renal calculi or focal parenchymal lesions. The kidney measures 9.7 cm in maximum dimension. SPLEEN: Normal. The spleen measures 6.2 cm in maximum dimension. FREE FLUID: None. US/US abdomen complete IMPRESSION: 1. Two liver masses are seen. There has probably been no significant interval change since 2019. The findings are consistent with hemangiomas. Additional liver lesions were seen on the MRI study that are not seen on the current study. MRI could always be performed for further evaluation. The hemangiomas probably do not need followup, but would recommend ultrasound for further evaluation if this is an issue. 2. Cholelithiasis. 3. Slightly increased echogenicity of the liver suggesting hepatic steatosis. Electronically signed by: Lc Bearden MD 03/23/2024 01:24 PM EDT RP
== END 2024-03-22 09:47 | disposition home or self-care (01) ==
LOC: HO.HMGCX 09:46
PROVIDERS: PCP Internal Medicine; Visit Provider Internal Medicine
DX: R16.0 Hepatomegaly, not elsewhere classified (principal)
CPT/HCPCS: 76700

== ENCOUNTER 2025-05-10 13:41 | Outpatient (AMB) | payer OTHER, SELFPAY ==
[2025-05-10 14:07] VITALS: BP 108/70; PULSE 66; RESP 17; TEMP 36.6; O2SAT 99; BMI 26.5
--- NOTE | 2025-05-10 14:07 | MHC.PC.OV ---
Vital Signs 05/10/25 14:07 Height 5 ft 7 in Weight 169 lb BMI 26.5 BP 108/70 Blood Pressure Location Rt brachial Position Sitting Respiration 17 Pulse 66 Pulse Source Pulse Oximeter Temp 97.8 F Temp Source Oral Pulse Oximetry (%) 99 Oxygen Delivery Method Room Air Intake Visit Reasons: Stomach pain,headache,nausea Intake Note: Pt is here today for a sick visit. Pt c/o abdominal butteryflu feeling, headaches and nausea for 4-5 months. Pt also c/o diarrhea on and off. Allergies Seasonal Allergies Allergy (Mild, Verified 05/10/25 14:18) Itchy Eyes tetracycline Allergy (Unknown, Unverified 05/10/25 14:18) nausea and lightheaded Medication List - Last Reconciled 05/10/25 by Consuelo Julio MD No Known Home Meds Tobacco use date assessed: 05/10/25 Fall risk assessment: No Falls in past year Last assessed Fall Risk: 05/10/25 Dental Screening Dental Screen Date: 05/10/25 Did you have a dental visit in the last 12 months?: Yes Did you have a dental problem in the last 6 months where you did not have access to dental care?: No Was dental information given to patient?: Patient has dentist HPI Stomach pain,headache,nausea HPI Details Pt c/o epigastric discomfort with nausea but not vomiting on and off for 5 months better after eating. Patient denies change appetite, bowel habits, hematochezia, melena heartburn weight loss no melena. Patient denies nocturnal symptoms but often feels anxious nervous and jittery in the mornings. Pt has been under a lot stress at work since working under new management. Patient reports insomnia on and off. She has not been exercising 4 months. Patient feels very tired after getting home from work. She denies depression. [facility] Medical History Hyperlipidemia Colonoscopy refused Annual physical exam Liver masses Normal Pap smear Multinodular thyroid Cholelithiasis Surgical History No pertinent past surgical history Family History Father No problems noted. Mother No problems noted. Social History Household Members Other:: works from home, exercise, Housing: House Patient Tobacco Use Status: Never used Tobacco e-Cigarette/Vaping Use: Never Used service: No Current occupational status: employed Cognitive needs: No Hearing needs: No Vision needs: Yes Questionnaire PHQ-9 Over the last 2 weeks, how often have you been bothered by any of the following problems? 1. Little interest or pleasure in doing things: not at all 2. Feeling down, depressed, or hopeless: not at all 3. Trouble falling or staying asleep, or sleeping too much: several days 4. Feeling tired or having little energy: several days 5. Poor appetite or overeating: not at all 6. Feeling bad about yourself - or that you are a failure or have let yourself or your family down: not at all 7. Trouble concentrating on things, such as reading the newspaper or watching television: not at all 8. Moving or speaking so slowly that other people could have noticed. Or the opposite - being so fidgety or restless that you have been moving around a lot more than usual: not at all 9. Thoughts that you would be better off or of hurting yourself in some way: not at all Total score: 2 Depression Screening Interpretation: Negative Depression Screening Done: Yes Source: Developed by Drs. Ashish De Dios, Juanis Saleh, Fernando Curiel and colleagues, with an educational karrie from [employer]. Thrive Questionnaire Date Thrive assessed: 02/16/24 I am a: Patient What is your living situation today?: I have a steady place to live Within the past 12 months, did the food you bought not last and you didn't have the money to get more?: Never true Within the past 12 months, did you worry whether your food would run out before you got money to buy more?: Never true Do you have trouble paying for medicines?: No Do you have trouble getting transportation to medical appointments?: No Do you have trouble paying your heating and electricity bill?: No Do you have trouble taking care of your child, family member or friend?: No Do you have trouble with day-to-day activities such as bathing, preparing meals, shopping, managing finances, etc.?: No Are you currently unemployed and looking for a job?: No Are you interested in more education?: No Please select the resources that you would like help with: None Currently or been in a relationship where the following occur: No concerns reported THRIVE Score: 0 AUDIT C Alcohol Use Questionnaire (AUDIT-C) 1. How often do you have a drink containing alcohol?: Monthly or less 2. How many drinks containing alcohol do you have on a typical day when you are drinking?: 1 or 2 3. How often do you have six or more drinks on one occasion?: Never Total Score: 1 VIANCA-7 AMB Questionnaire VIANCA-7 Date VIANCA - 7 assessed: 02/16/24 Feeling nervous, anxious, or on edge: 1 = Several days Not being able to stop or control worryin = Several days Worrying too much about different things: 0 = Not at all Trouble relaxin = Several days Being so restless that it is hard to sit still: 0 = Not at all Becoming easily annoyed or irritable: 0 = Not at all Feeling afraid as if something awful might happen: 0 = Not at all Total VIANCA-7 score (0-4 normal; 5-9 mild; 10-14 moderate; 15-21 severe): 3 Source: Developed by Drs. Ashish De Dios, Juanis Saleh, Fernando Curiel and colleagues, with an educational karrie from [employer]. Review of Systems Const All systems reviewed & are unremarkable except as noted in HPI and below Eyes Reports no additional complaints ENT Reports no additional complaints Card Reports no additional complaints Resp Reports no additional complaints GI Reports no additional complaints Reports no additional complaints Physical exam (Primary Care) Vital Signs: Last Vital Signs Temp 97.8 F 05/10/25 14:07 Pulse 66 05/10/25 14:07 Resp 17 05/10/25 14:07 BP 108/70 05/10/25 14:07 Pulse Ox 99 05/10/25 14:07 Oxygen Delivery Method Room Air 05/10/25 14:07 BMI result Body Mass Index 26.5 Tobacco/Smoking Status: Tobacco use Status Tobacco use date assessed 05/10/25 05/10/25 14:19 Patient Tobacco Use Status Never used Tobacco 05/10/25 14:07 e-Cigarette/Vaping Use Never Used 05/10/25 14:07 PHQ-9: PHQ-9 Score PHQ-9: Total score 2 05/10/25 15:01 Depression Screening Interpretation: Negative Thrive Assessment: Date of Thrive Assessment Date Thrive assessed 02/16/24 05/10/25 14:07 Currently or been in a relationship where the following occur: No concerns reported Const General: no acute distress HENMT Head: Yes normal to inspection Ears: hearing grossly normal bilaterally Face and sinus: Yes normal facial exam Mouth: Normal oral and palatal mucosa present Throat: Yes posterior oropharynx normal Eyes General: appearance normal, both eyes and all related structures Neck Neck: Yes no lymphadenopathy and Yes supple Resp Effort & Inspection: normal respiratory effort Auscultation: clear to auscultation bilaterally Cardio Rhythm: regular rhythm Heart sounds: S1 normal heart sound present and S2 normal heart sound present GI Inspection: Yes normal to inspection Palpation (GI): Soft to palpation and nontender Percussion: Yes normal to percussion Auscultation: normal bowel sounds Coding Level of Care Code Est Pt Level 3 (20769) Diagnoses Abdominal pain R10.9 Anxiety F41.9 Assessment & Plan Assessment & Plan (1) Abdominal pain: Code(s): R10.9 - Unspecified abdominal pain Category: Medical Plan: Obtain blood work abdominal ultrasound and check H pylori stool antigen (2) Anxiety: Code(s): F41.9 - Anxiety disorder, unspecified Category: Medical Plan: Stress management discussed with the patient. She was advised to start regular physical activity Orders: Orders Comprehensive [place]. Panel Fast Today Z00.00 - Encounter for general adult medical examination without abnormal findings Complete Blood Count Auto Diff Today Z00.00 - Encounter for general adult medical examination without abnormal findings Lipid Panel Today Z00.00 - Encounter for general adult medical examination without abnormal findings TSH reflex Free T4 Today Z00.00 - Encounter for general adult medical examination without abnormal findings Vitamin D 25-OH Total Today Z00.00 - Encounter for general adult medical examination without abnormal findings H pylori Ag Stool Today Z00.00 - Encounter for general adult medical examination without abnormal findings US abdomen limited Today Z00.00 - Encounter for general adult medical examination without abnormal findings Vitamin B12 and Folate Today Z00.00 - Encounter for general adult medical examination without abnormal findings UA w Microscopic Today Z00.00 - Encounter for general adult medical examination without abnormal findings
--- OUTSIDE RECORDS SUMMARY | 2025-05-10 19:28 | XMS_ITS | Patient Health Record ---
Author Organization [facility] Address [address] [place] [phone] Support Name Relationship Address Phone SVTEA MULTANI Guarantor Unknown [phone] Reason For Referral No Information Medications Medication SIG (Take, Route, Frequency, Duration) Notes Start Date End Date Status PT Chondromalacia Quad program with modalities as directed two times per week; Duration: 4-6 weeks 10/21/2010 Active CeleBREX 200 mg 1 cap(s) orally 2 ti mes a day; Duration: 30 day(s) 10/21/2010 Active Plan Of Treatment No Information Insurance Providers Payer Name Payer Address Payer Phone Subscriber Number Group Number Insured Name Patient Relationship to Insured Coverage Start Date Coverage End Date [facility] [address] [address] [place] [address] [id number] SVETA MULTANI Self - patient is the insured
== END 2025-05-10 20:36 | disposition home or self-care (01) ==
LOC: HO.HMCC 13:41
PROVIDERS: PCP Internal Medicine; Visit Provider Internal Medicine
DX: R10.9 Unspecified abdominal pain (principal); F41.9 Anxiety disorder, unspecified

== ENCOUNTER 2025-05-11 08:59 | Outpatient (REF) | payer OTHER, SELFPAY ==
--- OUTSIDE RECORDS SUMMARY | 2025-05-11 09:48 | XMS_ITS | Patient Health Record ---
Author Organization [facility] Address [address] [place] [phone] Support Name Relationship Address Phone SVETA MULTANI Guarantor Unknown [phone] Reason For Referral No Information Medications Medication [...] Insured Coverage Start Date Coverage End Date [facility] [address] [address] [place] [address] [id number] SVETA MULTANI Self - patient is the insured
[2025-05-11 10:30] LABS: Appearance Urine Cloudy; Glucose Urine UA Negative (Negative); PH 5.5 (5.0-9.0); Specific Gravity - Urine 1.020 (1.005-1.025); UMIC TRIGGER UA YES
[2025-05-11 10:31] LABS: MANUAL DIFF FLAG NO
[2025-05-11 10:40] LABS: Hematocrit 41.9 % (37.0-47.0); Hemoglobin 13.5 g/dl (12.0-16.0); Imm Gran Abs Auto 0.01 X10*3/uL (0.00-0.03); Imm Gran Pct Auto 0.2 % (0.0-0.4); Lymphocytes Absolute Auto 1.8 X10*3/uL (1.2-4.9); Mean Corpuscular HGB Conc 32.2 g/dl (31.0-35.0); Mean Corpuscular Hemoglobin 29.2 pg (27.0-33.0); Mean Corpuscular Volume 90.7 fL (80.0-98.0); NRBC Abs Auto 0.000 X10*3/uL (0.0-0.012); NRBC Pct Auto 0.0 /100WBC (0.0-0.2); Platelet Count 342 X10*3/uL (160-400); Red Blood Count 4.62 X10*6/uL (4.20-5.50); White Blood Count 4.9 X10*3/uL (4.8-10.8)
[2025-05-11 11:28] LABS: Alanine Aminotransferase 16 U/L (0-31); Albumin Level 4.5 g/dL (3.5-5.0); Alkaline Phosphatase 112 U/L (39-117); Anion Gap 11 (12-20); Aspartate Amino Transferase 16 U/L (5-31); Blood Urea Nitrogen 15 mg/dL (9-16); Calcium 9.1 mg/dL (8.4-10.2); Carbon Dioxide 28 mmol/L (22-29); Chloride 109 mmol/L (96-108); Cholesterol 227 mg/dL (<200); Estimated Glomerular Filt Rate > 60; HDL Cholesterol 44 mg/dL (>40); Potassium 4.1 mmol/L (3.3-5.1); Sodium 144 mmol/L (135-145); Total Protein 7.0 g/dL (6.5-8.0); Triglycerides 145 mg/dL (<150)
[2025-05-11 11:50] LABS: Folate 4.5 ng/mL (> or = 4.0); Vitamin B12 245 pg/mL (200-900)
== END 2025-05-11 09:00 | disposition home or self-care (01) ==
LOC: HO.HMGCLDS 08:59
PROVIDERS: PCP Internal Medicine; Visit Provider Internal Medicine
DX: Z00.00 Encounter for general adult medical examination without abnormal findings (principal); Z13.21 Encounter for screening for nutritional disorder; Z13.6 Encounter for screening for cardiovascular disorders; Z13.29 Encounter for screening for other suspected endocrine disorder
CPT/HCPCS: 36415; 80053; 80061; 81001; 82306; 82607; 82746; 84443; 85025